=== PATIENT | female | born 1980 | race African-American/Black ===

== ENCOUNTER 2017-01-30 12:03 | Emergency (ER) | payer MEDICAID, OTHER ==
[~2017-01-30] VITALS: Ht 160 cm; Wt 68.9 kg
[~2017-01-30 12:03] MED LIST: ACYCLOVIR400 MG ORAL; AMOXICILLIN500 MG ORAL; AMOXICILLIN500 MG PO; AUGMENTIN 875-1 EAC1 ORAL; AZITHROMYCIN250 MG ORAL; BENADRYL25 MG ORAL; BIRTH CONTROL; FIORICET1 EA ORAL; GUAIFENESIN-CO118 M1 ORAL; GUAIFENESIN1200 MG PO; IBUPROFEN600 MG ORAL; NAPROSYN500 M1 ORAL; NECON1 EAC1 PO; NITROFURANTOIN100 M2 ORAL; NKM; NORCO 5-325 TA1 EAC1 ORAL; NORCO 5-325 TA1 EACH ORAL; PHENERGAN/CODE120 ML PO; PREDNISONE20 MG ORAL; PROMETHAZINE-C118 M1 ORAL; TESSALON200 MG PO; ZOVIRAX OINT1 APPLI1 TOPIC; [UNRECOGNIZED DRUG - OTHER] PO
[2017-01-30] MEDS ORDERED: KENALOG 0.025%15 GM APPLIC (12:36)
[2017-01-30] MEDS ORDERED: BENADRYL25 MG ORAL (12:36)
[2017-01-30] MEDS ORDERED: PREDNISONE20 MG ORAL (12:36)
[2017-01-30 12:50] VITALS: BP 135/80
--- NOTE | 2017-01-30 13:56 | Emergency Room Report ---
History of Present Illness General Chief Complaint: Skin Rash/Abscess Present Illness HPI The patient is a 36-year-old female presenting for possible insect bites. 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 She noticed red bumps on the left ankle 3 days prior itching. She denies any pain. She has tried Benadryl and hydrocortisone which has not helped. She denies any other symptoms including nausea, vomiting, fever, chills , diarrhea, shortness of breath, swelling Allergies: Coded Allergies: ERYTHROMYCIN LACTOBIONATE (Verified Allergy, Severe, 07/19/12) SULFAMETHOXAZOLE (Verified Allergy, Unknown, 08/25/15) TRIMETHOPRIM (Verified Allergy, Unknown, 08/25/15) Patient History Past Medical History: see triage record Pertinent Family History: none Reviewed Nursing Documentation: PMH: Agreed, PSxH: Agreed Nursing Documentation-PMH Hx Cardiac Problems: No Hx Gastrointestinal Problems: No Review of Systems All Other Systems: negative except mentioned in HPI Physical Exam Vital Signs Date Time Temp Pulse Resp B/P (MAP) Pulse Ox O2 Delivery O2 Flow Rate FiO2 01/30/17 12:17 98.4 73 20 127/84 99 Room Air Sp02 EP Interpretation: reviewed, normal General Appearance: no apparent distress, alert, GCS 15, non-toxic Head: normocephalic, atraumatic Eyes: bilateral eye normal inspection, bilateral eye PERRL ENT: hearing grossly normal, normal pharynx, no angioedema, normal voice Neck: full range of motion, supple/symm/no masses Respiratory: chest non-tender, lungs clear, normal breath sounds, speaking full sentences Musculoskeletal: back normal, gait/station normal, normal range of motion, non- tender, no calf tenderness Neurologic: alert, oriented x3, responsive, motor strength/tone normal, sensory intact, speech normal Psychiatric: judgement/insight normal, memory normal, mood/affect normal, no suicidal/homicidal ideation Skin: rash - multiple circular erythematous lesions of the L ankle. 1cm in diameter. Non tender. No increased temperature Lymphatic: no adenopathy Medical Decision Making PA Attestation Dr. Potter is my supervising physician. Patient management was discussed with my supervising physician Diagnostic Impression: Primary Impression: Insect bites Qualified Codes: W57.XXXA - Bitten or stung by nonvenomous insect and other nonvenomous arthropods, initial encounter ER Course The patient is a 36-year-old female presenting for possible insect bites. Ddx considered include but not limited to insect bite, contact dermatitis, eczema, cellulitis, phlebitis, among others PE: Afebrile. NAD Multiple circular lesions consistent with insect bites on the left lower leg. Nontender. No edema. No increased temperature. No streaking. The patient will be treated with oral steroids, cream, and Benadryl. She will follow up with primary doctor. ER precautions given Last Vital Signs Date Time Temp Pulse Resp B/P (MAP) Pulse Ox O2 Delivery O2 Flow Rate FiO2 01/30/17 12:50 62 18 135/80 97 Room Air 01/30/17 12:17 98.4 Status: improved Disposition: HOME, SELF-CARE Condition: Improved Scripts Triamcinolone Acet (Triamcinolone Acetonide) 15 Gm Cream..g. 15 GM APPLIC TID, #15 GM Prov: VIRA US. 01/30/17 Diphenhydramine Hcl* (BENADRYL*) 25 Mg Capsule 25 MG ORAL Q6H Y for Itching, #30 CAP Prov: VIRA US.A. 01/30/17 Prednisone* (PREDNISONE*) 20 Mg Tablet 40 MG ORAL DAILY, #10 TAB Prov: VIRA US.A. 01/30/17 Referrals: NOT CHOSEN IPA/MD,REFERRING Patient Instructions: Rash, Insect Bite Additional Instructions: I discussed my findings with the patient. All questions and concerns have been answered. Treatment and medication compliance have been addressed. I advised the patient that they need to follow up with PMD in 3-5 days. Return to ED if symptoms worsen, new symptoms arise such as fever, increased redness, swelling, shortness of breath, or if needed for any reason. Patient verbalized understanding of discharge instructions. VIRA US Jan 30, 2017 13:55
== END 2017-01-30 12:50 | disposition home or self-care (01) ==
LOC: EMR 12:40
DX: R21 Rash and other nonspecific skin eruption (principal); W57.XXXA Bitten or stung by nonvenomous insect and other nonvenomous arthropods, initial encounter; Y93.9 Activity, unspecified; Y99.9 Unspecified external cause status; Z88.2 Allergy status to sulfonamides; Z88.1 Allergy status to other antibiotic agents; S90.562A Insect bite (nonvenomous), left ankle, initial encounter
CPT/HCPCS: 99284